=== PATIENT | female | born 1950 | race Caucasian/White ===

== ENCOUNTER → 2016-09-10 | Outpatient (CLI) | payer OTHER ==
[~2016-09-10] VITALS: Ht 147.3 cm; Wt 55.7 kg
[~2016-09-10] MED LIST: ASPI81TA28 PO; CALC8.5C PO; CYAN100020 SL; FERR28TA2 PO; FERROUS GLYCINATE PO; FLAXSEED PO; HYDR-4079 PO; IBUP600T44 PO; IRBE-37 PO; IRBE1TAB50 PO; LORA-741 PO; MULT-513 PO; OMG3 PO; PRD/25 PO; PRED-301 PO; RALO60TA12 PO; SULF500T35 PO; VTMD1000 PO; [UNRECOGNIZED DRUG - OTHER] PO
[2016-09-10 14:55] VITALS: Ht 147.3 cm; Wt 55.7 kg
--- NOTE | 2016-09-10 15:46 | PAT Medication Instructions ---
Service Date Sep 10, 2016. Current Home Medication List Aspirin (Aspirin Ec), 81 MG PO QAM Calcium W/ Vitamins D & K (Viactiv), 1-2 TAB PO NOON Cholecalciferol (Vitamin D3), 2,000 INTER.UNIT PO NOON Cyanocobalamin (Vitamin B12), 1,000 MCG SL NOON Hydrocodone/Acetaminophen 10MG/325MG ([place] 10MG/325MG), 1 TAB PO QID PRN for Pain Ibuprofen (Motrin), 600 MG PO QID PRN for RN Irbesartan (Irbesartan), 1 TAB PO QAM Lorazepam (Ativan), 0.5 MG PO TID PRN for PRN Multivitamins/Minerals (Mvi With Minerals), 1 TAB PO NOON Prednisone (Prednisone), 2.5 MG PO TID Prednisone (Prednisone), 5 MG PO TID Raloxifene Hcl (Evista), 60 MG PO NOON Sulfasalazine (Sulfazine Ec), 1,000 MG PO TID [Dolemite], 1 TAB PO NOON [Ferrous Glycinate], 1 TAB PO NOON [Flaxseed], 1 DOSE PO TIDM Medication Instructions For Your Scheduled Surgery - Hold the following medications 7 days prior to surgery per surgeon's instructions: Sulfasalazine (Sulfazine Ec), 1,000 MG PO TID Ibuprofen (Motrin), 600 MG PO QID PRN for RN - Hold the following medications the morning of surgery: Calcium W/ Vitamins D & K (Viactiv), 1-2 TAB PO NOON Cholecalciferol (Vitamin D3), 2,000 INTER.UNIT PO NOON Cyanocobalamin (Vitamin B12), 1,000 MCG SL NOON Irbesartan (Irbesartan), 1 TAB PO QAM Raloxifene Hcl (Evista), 60 MG PO NOON Multivitamins/Minerals (Mvi With Minerals), 1 TAB PO NOON [Flaxseed], 1 DOSE PO TIDM [Dolemite], 1 TAB PO NOON [Ferrous Glycinate], 1 TAB PO NOON - Take the following medications the morning of surgery with a sip of water OTHERWISE NOTHING TO EAT OR DRINK AFTER MIDNIGHT: Aspirin (Aspirin Ec), 81 MG PO QAM Hydrocodone/Acetaminophen 10MG/325MG ([place] 10MG/325MG), 1 TAB PO QID PRN for Pain (okay to take if needed up to 4 hours prior to surgery if needed) Lorazepam (Ativan), 0.5 MG PO TID PRN for PRN Prednisone (Prednisone), 2.5 MG PO TID Prednisone (Prednisone), 5 MG PO TID - Take the following medications as scheduled the night before surgery: Hydrocodone/Acetaminophen 10MG/325MG ([place] 10MG/325MG), 1 TAB PO QID PRN for Pain Lorazepam (Ativan), 0.5 MG PO TID PRN for PRN [Flaxseed], 1 DOSE PO TIDM Prednisone (Prednisone), 2.5 MG PO TID Prednisone (Prednisone), 5 MG PO TID If you have any questions please call us at [phone] (Martha Esparza PA-C) or [phone] or [phone]
[2016-09-10 16:36] LABS: BASO % 0.5 %; BASO ABS # 0.04 K/uL (0-0.2); COMPLETE YES; EOS % 0.1 %; HEMATOCRIT 32.9 % (37-47); IG% 0.2 %; LYMPH % 20.7 %; LYMPH ABS # 1.82 K/uL (1.2-3.4); MEAN CELL VOLUME 79.1 fL (80-100); MEAN CORPUSCULAR HEMOGLOBIN 23.6 pg (25-34); MEAN CORPUSCULAR HGB CONC 29.8 g/dl (32-36); MEAN PLATELET VOLUME 8.3 fL (7.4-10.4); NEUT % 73.5 %; PLATELET COUNT 431 K/uL (130-400); RED BLOOD COUNT 4.16 M/uL (4.2-5.4); WHITE BLOOD COUNT 8.81 K/uL (4.8-10.8)
[2016-09-10 16:48] LABS: PARTIAL THROMBOPLASTIN RATIO 1.2; PROTHROMBIN TIME (PATIENT) 10.3 SECONDS (9.0-12.0)
[2016-09-10 17:01] LABS: BUN/CREATININE RATIO 15.5 (10-20); CALCIUM 9.3 mg/dl (8.5-10.1); CREATININE 0.47 mg/dl (0.60-1.20)
== END | disposition home or self-care (01) ==
LOC: C.LAB 08:00 → EDSTATUS 10-03 07:00
PROVIDERS: ATTEND Physical Medicine & Rehabilitation Sports Medicine
DX: M17.12 Unilateral primary osteoarthritis, left knee (principal); Z01.810 Encounter for preprocedural cardiovascular examination; Z01.811 Encounter for preprocedural respiratory examination; Z01.812 Encounter for preprocedural laboratory examination

== ENCOUNTER → 2016-09-10 | Outpatient (CLI) | payer OTHER ==
--- NOTE | 2016-09-10 15:44 | DIAGNOSTIC IMAGING REPORT ---
LEFT ANKLE MIN 3 VIEWS CLINICAL HISTORY: Left ankle pain. Rheumatoid arthritis. COMPARISON: None FINDINGS: An 8 mm well-corticated ossicle along the medial malleolus is old. There is complete loss of the tibiotalar joint space. There is minimal sclerosis. No acute fracture or suspicious lesion is present. There is mild posterior and plantar calcaneal spurring. There is narrowing of the joint spaces within the left midfoot as well. IMPRESSION: 1. Complete loss of the tibiotalar joint space with minimal sclerosis. The findings are consistent with provided history of rheumatoid arthritis. 2. No acute fracture. 3. Moderate to marked joint space narrowing within the left midfoot. Electronically signed by: Lacho Copeland M.D. 09/10/2016 3:42 PM Dictated Date/Time: 09/10/2016 3:40 PM
--- NOTE | 2016-09-10 16:26 | DIAGNOSTIC IMAGING REPORT ---
LEFT KNEE 4 OR MORE CLINICAL HISTORY: LEFT KNEE AND ANKLE PAIN COMPARISON STUDY: Right knee 09/12/2015. FINDINGS: There is again noted a right total knee arthroplasty. The hardware appears intact. The bones are osteopenic. 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 This demonstrates up to 3 mm of distraction. This is not significantly changed. There is severe cartilage space narrowing with [id number] articulation and subchondral sclerosis within the medial compartment of the left knee. Mild cartilage space narrowing within the lateral patellofemoral compartments. No significant knee effusion. IMPRESSION: 1. No change in the slightly distracted old nonunited fracture involving the medial aspect of the medial tibial plateau. 2. There is associated severe osteoarthritis of the medial compartment of the left knee. 3. Right total knee arthroplasty. Electronically signed by: Hugo Roth M.D. 09/10/2016 4:24 PM Dictated Date/Time: 09/10/2016 4:21 PM
== END | disposition home or self-care (01) ==
LOC: C.RDSM 13:15
PROVIDERS: ATTEND Physical Medicine & Rehabilitation Sports Medicine
DX: Z01.810 Encounter for preprocedural cardiovascular examination (principal); Z01.811 Encounter for preprocedural respiratory examination; Z01.812 Encounter for preprocedural laboratory examination; M06.9 Rheumatoid arthritis, unspecified; M25.872 Other specified joint disorders, left ankle and foot; M17.12 Unilateral primary osteoarthritis, left knee

== ENCOUNTER → 2017-11-04 | Outpatient (CLI) | payer OTHER ==
[~2017-11-04] MED LIST changes: -FERR28TA2 PO; -IRBE-37 PO; -OMG3 PO; -RALO60TA12 PO; +RALO60TA30 PO
== END | disposition home or self-care (01) ==
LOC: C.RDSM 19:25
PROVIDERS: ATTEND Physical Medicine & Rehabilitation Sports Medicine
DX: M06.862 Other specified rheumatoid arthritis, left knee (principal); M17.0 Bilateral primary osteoarthritis of knee; Z96.653 Presence of artificial knee joint, bilateral; M25.552 Pain in left hip

== ENCOUNTER → 2018-04-07 | Outpatient (CLI) | payer OTHER ==
[2018-04-07 13:07] LABS: BASO % 0.3 %; BASO ABS # 0.03 K/uL (0-0.2); EOS ABS # 0.09 K/uL (0-0.5); HEMATOCRIT 35.2 % (37-47); HEMOGLOBIN 10.7 g/dL (12.0-16.0); IG# 0.07 K/uL (0.00-0.02); LYMPH % 23.3 %; LYMPH ABS # 2.12 K/uL (1.2-3.4); MEAN CELL VOLUME 94.4 fL (80-100); MEAN CORPUSCULAR HEMOGLOBIN 28.7 pg (25-34); MEAN CORPUSCULAR HGB CONC 30.4 g/dl (32-36); MEAN PLATELET VOLUME 8.9 fL (7.4-10.4); MONO % 4.8 %; MONO ABS # 0.44 K/uL (0.11-0.59); NEUT % 69.8 %; NEUT ABS # 6.34 K/uL (1.4-6.5); PLATELET COUNT 350 K/uL (130-400); RED CELL DISTRIBUTION WIDTH CV 17.7 % (11.5-14.5); RED CELL DISTRIBUTION WIDTH SD 60.2 fL (36.4-46.3); WHITE BLOOD COUNT 9.09 K/uL (4.8-10.8)
--- NOTE | 2018-04-07 13:11 | DIAGNOSTIC IMAGING REPORT ---
CERVICAL SPINE 2 OR 3 VIEWS HISTORY: 68 years-old Female PREOP, RHEUMATOID ARTHRITIS preoperative exam in a patient with history of rheumatoid arthritis COMPARISON: None available TECHNIQUE: 3 views of the cervical spine FINDINGS: 4 mm neutral retrolisthesis C3 on C4 with severe intervertebral disc space narrowing at C3-C4. There is only 2 mm retrolisthesis with flexion and 4 mm with extension. Additionally, there is 2 mm retrolisthesis C5 on C6 with extension. No erosive arthropathy identified. The bones appear mildly demineralized. Multilevel spondylitic spurring with at least mild facet arthropathy. Mild multilevel intervertebral disc space narrowing. Normal predental interval. IMPRESSION: 1. Multilevel degenerative changes about without acute fracture. 2. Grade 1 retrolisthesis C3 on C4 and C5 on C6 appears more apparent with extension suggesting possible instability. The above report was generated using voice recognition software. It may contain grammatical, syntax or spelling errors. Electronically signed by: Aime Villarreal M.D. 04/07/2018 1:10 PM Dictated Date/Time: 04/07/2018 1:06 PM
[2018-04-07 13:17] LABS: INR 0.9 (0.9-1.1); PTT PATIENT 24.2 SECONDS (21.0-31.0)
[2018-04-07 13:26] LABS: BLOOD UREA NITROGEN 16 mg/dl (7-18); CALCIUM 9.5 mg/dl (8.5-10.1); CARBON DIOXIDE 26 mmol/L (21-32); CREATININE 0.66 mg/dl (0.60-1.20); GLUCOSE 102 mg/dl (70-99); POTASSIUM 4.1 mmol/L (3.5-5.1); SODIUM 135 mmol/L (136-145)
== END | disposition home or self-care (01) ==
LOC: C.CPL 11:23
PROVIDERS: ATTEND Physical Medicine & Rehabilitation Sports Medicine
DX: Z01.812 Encounter for preprocedural laboratory examination (principal); Z01.810 Encounter for preprocedural cardiovascular examination; Z01.818 Encounter for other preprocedural examination; M06.9 Rheumatoid arthritis, unspecified; M47.812 Spondylosis without myelopathy or radiculopathy, cervical region; M43.12 Spondylolisthesis, cervical region